=== PATIENT | male | born 2000 | race Caucasian/White ===

== ENCOUNTER → 2021-07-15 03:17 | Outpatient (CLI) | payer OTHER, SELFPAY ==
[2021-07-15 21:56] LABS: SARS-CoV-2 RNA PCR Negative
== END ==
PROVIDERS: PCP Internal Medicine; Visit Provider Internal Medicine
DX: Z20.822 Contact with and (suspected) exposure to COVID-19 (principal); R68.89 Other general symptoms and signs
CPT/HCPCS: C9803; U0003; U0005